=== PATIENT | male | born 1985 | race Caucasian/White ===

== ENCOUNTER → 2016-03-14 | Outpatient (CLI) | payer BC ==
[~2016-03-14] MED LIST: AMOX875T2 PO; SULF1TAB35 PO
[2016-03-15 11:38] VITALS: BP 133/90
--- NOTE | 2016-03-15 11:38 | Urgent Care T Sheet Gen (E) ---
Intake General Temperature (Fahrenheit): 99.7 Pulse: 97 Blood Pressure Systolic: 133 Blood Pressure Diastolic: 90 Respirations: 20 SPO2: 97 Weight (Pounds): 226 Chief Complaint: eye swollen Source: Patient Exam Limitations: No limitations History of Present Illness Initial Comments Pt reports he started having a bump above his L eyebrow on Wednesday. It popped, drained, and then the surrounding area started getting swollen on Wednesday. He tried to keep it clean but it is slowly worsening, so he went to the Urgent Care from [facility] yesterday to be seen and was given Keflex. He started taking this about 24 hours ago, but this morning it is much worse, with the infection creeping up toward his hairline and the skin around his L eye is swollen down into the upper lid, and he thinks maybe underneath as well. He denies any vision changes or pain, but he is concerned it will get even worse. Onset & Duration: Changes over time, Getting Worse Prior Treatment: Recently seen (yesterday at [facility]) Allergies: Coded Allergies: No Known Drug Allergies (Unverified , 03/14/16) Home Meds Active Scripts Amoxicillin 875 Mg [id number] Mg PO BID Infection #20 TAB Ref 0 Prov:PANDA CARR 03/14/16 Sulfamethoxazole/Trimethoprim (Bactrim DS)1 Each Tablet1 Tab PO BID Infection # 20 TAB Ref 0 Prov:PANDA CARR 03/14/16 Additional Comment Nasal spray, Zyrtec, Mucinex DM lately, for cold symptoms Respiratory Constitutional Symptoms: No Chills, No Fever, No Malaise EENTM: No Eye pain, No Blurred vision, No Eye tearing, No Double Vision, No Ear pain, No Ear discharge, No Nose Pain, Nose CongestionNo Throat pain, No Mouth Pain, Other (some runny nose and sneezing since Wednesday) Respiratory: Cough (on and off ) Cardiovascular: No symptoms reported Gastrointestinal/Abdominal: No symptoms reported Musculoskeletal: No symptoms reported Skin: See HPI Neurological: No Headache Immunologic/Allergies: Pollen allergy All Other Systems Reviewed Remaining Systems: All other systems reviewed with negative findings Physical Exam Physical Exam General Appearance: WD/WN No apparent distress Eyes, Ears, Nose, Throat Ex: PERRL/EOMI (Pt has normal visual response despite surrounding swelling.) Pharyngeal erythema (with small amount clear drainage)No Tonsillar exudate, Other (TMs bulging bilaterally with clear fluid present; nasal turbinates mildly swollen with clear mucus present ; no sinus tenderness to palpation in maxillary and frontal sinuses) Neck Exam: Non tender Full range of motion Supple Normal inspection Respiratory Exam: Chest non-tender Lungs clear Normal breath sounds Cardiovascular Exam: Regular rate, rhythm No murmur Skin Exam: Rash (swelling with erythema present above L eyebrow about 2cm by 2.5cm, together with several draining comedone-like lesions scattered from central rash into pt's hairline on the L forehead and buddhist. L eyelids are also swollen but not erythematic or tender, and swelling is noted along temporal orbital area as well. No signficant increased warmth noted.) Neurologic/Psychiatric Exam: Oriented times 4 CN's II-X nml Mood/affect nml Lymphatic Exam: Other (anterior cervical adenopathy bilateral, mild, fluctuant , nontender) Progress/Orders Lab Results Labs Results: Other (swab of central lesion attempted and sent for culture) Departure Urgent Care Impression Chief Complaint: eye swollen Impression: Primary Impression: Cellulitis and abscess of face Departure Disposition: 01 HOME OR SELF-CARE Condition: Stable Referrals: Yun Chan MD (PCP) Additional Instructions: Discussed with pt that although this infection isn't currently threatening his sight, if it worsens it could. His lack of response to the Keflex makes me suspect this is not a simple skin infection, and I want to treat it much more aggressively at this point, as if it is definitely orbital cellulitis. He is to discontinue the Keflex, and take both antibiotics I have prescribed, and it should begin to respond within a day or two, and improve consistently thereafter. If it becomes more red, swollen, painful, if he develops a fever, chills, malaise, or if the rash continues to spread in the next day or two, particularly if he is having changes to his vision such as blurring or double vision, pain with movement of his eye, or other concerning symptoms, I want him to go directly to the ER for further assessment and treatment. Warned pt also that he should take care about transferring this bacteria to others in his family, particularly as he says he has an at home. Good hygiene, particularly handwashing after touching these lesions, is essential to prevent further spread. Pt states understanding and agrees to plan. All questions answered. Scripts Amoxicillin 875 Mg [id number] Mg PO BID Infection #20 TAB Ref 0 Prov:PANDA CARR 03/14/16 Sulfamethoxazole/Trimethoprim (Bactrim DS)1 Each Tablet1 Tab PO BID Infection # 20 TAB Ref 0 Prov:PANDA CARR 03/14/16 End of report . PANDA CARR Mar 14, 2016 11:38
--- NOTE | 2016-03-17 16:29 | Urgent Care Follow Up Note (E) ---
Urgent Care Follow Up Note The patient called wanting to know about his wound culture. Explained to him that it is the "preliminary" report however it showed a small amount of staph aureus. He states that since starting the Amoxicillin and Bactrim, the wound is doing much better. Instructed him to finish the antibiotics as prescribed and f/u as needed. Patient understands instructions. All questions were answered. Scripts Amoxicillin 875 Mg [id number] Mg PO BID Infection #20 TAB Ref 0 Prov:PANDA CARR 03/14/16 Sulfamethoxazole/Trimethoprim (Bactrim DS)1 Each Tablet1 Tab PO BID Infection # 20 TAB Ref 0 Prov:PANDA CARR 03/14/16 YASSINE ROCK Mar 17, 2016 16:29
== END ==
LOC: MHUC 10:39
PROVIDERS: ATTEND Physician Assistant Medical
DX: L03.211 Cellulitis of face (principal)
CPT/HCPCS: 99213